=== PATIENT | male | born 1975 | race Hispanic/Latino ===

== ENCOUNTER 2023-08-11 18:22 | Emergency (ER) | payer BC, OTHER ==
[~2023-08-11] VITALS: Ht 167.6 cm; Wt 117.9 kg
[~2023-08-11 18:22] MED LIST: LEVO500T2 PO; METR500T PO
[2023-08-11 18:26] VITALS: BP 153/95; PULSE 111; RESP 18; O2SAT 98
[2023-08-11] MEDS ORDERED: AMOX1TAB16 PO (19:42)
[2023-08-11] MEDS: TETANUS/DIPHTHERIA TOXOID [ADULT] 0.5 ML VIAL IM ONE (19:49)
== END 2023-08-11 20:00 | disposition home or self-care (01) ==
LOC: EDH 18:22
DX: S61.431A Puncture wound without foreign body of right hand, initial encounter (principal); S30.811A Abrasion of abdominal wall, initial encounter; I10 Essential (primary) hypertension; E11.9 Type 2 diabetes mellitus without complications; Z79.899 Other long term (current) drug therapy; W54.0XXA Bitten by dog, initial encounter; Y93.89 Activity, other specified; Y92.89 Other specified places as the place of occurrence of the external cause; Y99.8 Other external cause status
CPT/HCPCS: 90471; 90714

== ENCOUNTER 2023-11-05 15:48 | Emergency (ER) | payer BC, OTHER ==
[~2023-11-05] VITALS: Ht 165.1 cm; Wt 108.9 kg
[~2023-11-05 15:48] MED LIST changes: +AMOX1TAB16 PO
[2023-11-05] MEDS: ONDANSETRON 4MG INJ IVP ONE (16:13)
[2023-11-05] MEDS: acetaZOLAMIDE 500MG VIAL IV SCH (16:14)
[2023-11-05] MEDS: MORPHINE 2 MG SYG IVP ONE (16:14)
[2023-11-05 16:25] LABS: BASOPHILS # (AUTO) 0.09 K/uL (0.00-0.20); BASOPHILS % (AUTO) 0.9 % (0.0-5.0); EOSINOPHILS # (AUTO) 0.07 K/uL (0.00-0.70); EOSINOPHILS % (AUTO) 0.7 % (0.0-8.0); HEMATOCRIT 52.1 % (42-54); IMMATURE GRANULOCYTE ABSOLUTE 0.12 K/uL (0-1); LYMPHOCYTES # (AUTO) 3.3 K/uL (1.0-4.8); LYMPHOCYTES % (AUTO) 32.2 % (21.0-51.0); MEAN CORPUSCULAR HEMOGLOBIN 27.2 pg (27.0-33.0); MEAN CORPUSCULAR VOLUME 80.2 fL (79-99); MONOCYTES # (AUTO) 0.7 K/uL (0.1-1.0); MONOCYTES % (AUTO) 7.3 % (3.0-13.0); NEUTROPHILS # (AUTO) 5.9 K/uL (1.8-7.7); NEUTROPHILS % (AUTO) 57.7 % (40.0-77.0); PLATELET COUNT (AUTO) 275 K/uL (130-400); RED CELL DISTRIBUTION WIDTH 13.9 % (11.0-15.5); WHITE BLOOD COUNT (AUTO) 10.1 K/uL (4.8-10.8)
[2023-11-05 16:28] LABS: POTASSIUM 4.1 mmol/L (3.5-5.1)
[2023-11-05 16:31] LABS: INR 1.02 (0.85-1.15)
[2023-11-05] MEDS: TIMOLOL MALEATE 0.25% 5 ML BOTTLE OD SCH (16:34)
[2023-11-05 17:57] VITALS: BP 147/81; PULSE 87; RESP 20; O2SAT 100
[2023-11-05] MEDS: KETOROLAC 30MG VIAL (30MG/ML) IVP ONE (18:56)
[2023-11-05] MEDS ORDERED: TIMO1DRO8 OP (20:30)
== END 2023-11-05 20:48 | disposition home or self-care (01) ==
LOC: EDH 15:48
DX: H53.143 Visual discomfort, bilateral (principal); H57.13 Ocular pain, bilateral; E11.9 Type 2 diabetes mellitus without complications; I10 Essential (primary) hypertension; Z79.899 Other long term (current) drug therapy
CPT/HCPCS: 99284; 96374; 96375; 70450; 82550; 84484; 80048; 85025; 85610; 85730; 36415; 93005; J1120; J2270; J2405; J1885

== ENCOUNTER 2024-03-25 15:40 | Emergency (ER) | payer BC, OTHER ==
[~2024-03-25] VITALS: Ht 167.6 cm; Wt 104.3 kg
[~2024-03-25 15:40] MED LIST changes: +TIMO1DRO8 OP
[2024-03-25] MEDS: dexaMETHasone SOD PHOSPHATE 4 MG/ML 1ML VIAL IM STA (17:42)
[2024-03-25] MEDS: ketOROlac 15MG/ML VIAL (15MG/ML) IM STA (17:42)
--- NOTE | 2024-03-25 17:50 | ERN ---
ED Note History of Present Illness Stated Complaint: LEFT LEG PAIN, R/T GOUT Chief Complaint: Lower Extremity Pain/Injury Time Seen by MD: 15:45 Time Seen by Midlevel: 15:48 Dictation: 48-year-old male with history of gout presents to the ED for evaluation of left leg pain onset 4 days ago. Patient reports pain radiates from his knee down to his foot, but denies any recent trauma, fall or any other associated symptoms at this time. Allergies: Coded Allergies: No Known Allergies (Unverified Allergy, Unknown, 10/23/13) Home Meds Active Scripts Sulfamethoxazole/Trimethoprim (Bactrim Ds Tablet) 800 Mg-160 Mg Tablet, 1 TAB PO BID for 7 Days, #14 TAB 0 Refills Prov:JAMEY HENRIQUEZ NP 03/25/24 Timolol Maleate/Pf (Timolol Maleate 0.25% Eye Drop) 0.25 % Droperette, 1 EACH OP QID, #60 DROP Prov:ERI WOO MD 11/05/23 Amoxicillin/Potassium Clav (Amox Tr-K Clv 875-125 mg Tab) 875 Mg-125 Mg Tablet, 1 EACH PO BID for 7 Days, #14 TAB Prov:HERBER LOTT 08/11/23 Levofloxacin (Levaquin) 500 Mg Tablet, 500 MG PO DAILY, #7 TAB Prov:DEZ NICOLE MD 09/03/14 Metronidazole (Flagyl) 500 Mg Tablet, 500 MG PO TID, #21 TAB Prov:DEZ NICOLE MD 09/03/14 Past Medical History Past Medical History: Diabetes-Type II, Hypertension Additional Past Medical Hx: GOUT Surgical History: None Review of System Dictation Constitutional: Negative for fever,chills, and weight loss Eyes: Negative for injury, pain,redness, and discharge ENT: Negative for injury,pain or swelling Cardiovascular: Negative for chest pain, palpitations, and edema Respiratory: Negative for shortness of breath, cough, and wheezing, Abdomen/GI: Negative for abdominal pain, nausea, vomiting, diarrhea, and constipation Back: Negative for injury and pain : Negative for injury, bleeding and discharge MS/Extremity: Positive for left leg pain, knee pain, foot pain Negative for injury and deformity Skin: Negative for rash, and discoloration Neuro: Negative for headache, weakness, numbness, tingling, and seizure Psych: Negative for suicide ideation, homicidal ideation, and hallucinations Review of Systems: was completed Initial Vital Sign VS Vital Signs Date Time Temp Pulse Resp B/P (MAP) Pulse Ox O2 Delivery O2 Flow Rate FiO2 03/25/24 15:42 99.1 131 16 151/109 97 Room Air 0 03/25/24 18:25 21 Physical Exam Dictation General: awake, alert, NAD Head/Face: Normocephalic, atraumatic Eyes: PERRL, EOMI, vision at baseline ENT: oral cavity clear, TMs clear, no signs of infection Neck: Trachea midline, supple, no nuchal rigidity Cardiovascular: RRR, normal S1/S2, No MRGs, no JVD Respiratory: CTAB, no respiratory distress, No rales or wheezes Abdomen: Soft, non-tender, non-distended, normal bowel sounds, no guarding or rebound. Skin: Warm, dry, normal turgor, no rash there is no redness, streaking, or any evidence of cellulitis or infections of the left foot MS/Extremity: Pulses equal, no cyanosis, neurovascular intact, FROM Neuro: COAx4, GCS 15, strength 5/5, CN 2-12 intact, normal cerebellar exam, normal gait, Psych: Normal behavior, mood, and affect normal Results (Laboratory/Radiology) Laboratory/Radiology Laboratory Tests Test 03/25/24 17:46 03/25/24 18:25 03/25/24 20:30 Urine Color YELLOW (YELLOW) Urine Appearance CLOUDY (CLEAR) H Urine pH 5.5 (5.0-8.0) Urine Specific [place] 1.031 (1.001-1.031) Urine Protein 20 mg/dL (NEGATIVE) H Urine Glucose (UA) >=1000 mg/dL (NEGATIVE) H Urine Ketones 40 mg/dL (NEGATIVE) H Urine Occult Blood SMALL (NEGATIVE) H Urine Nitrate NEGATIVE (NEGATIVE) Urine Bilirubin NEGATIVE mg/dL (NEGATIVE) Urine Urobilinogen 0.2 mg/dL (0.2-1.0) Urine Leukocyte Esterase 500 Shell/uL (NEGATIVE) H Urine RBC 51-100 /HPF (0-1) H Urine WBC 26-50 /HPF (0-1) H Urine Squamous Epithelial Cells FEW /HPF (0-2) Urine Bacteria FEW /HPF (None Seen) Urine Yeast FEW /HPF (None Seen) White Blood Count 14.7 K/uL (4.8-10.8) H Red Blood Count 6.43 MIL/uL (4.50-6.20) H Hemoglobin 17.6 g/dL (14.0-18.0) Hematocrit 52.7 % (42-54) Mean Corpuscular Volume 82.0 fL (79-99) Mean Corpuscular Hemoglobin 27.4 pg (27.0-33.0) Mean Corpuscular Hemoglobin Concent 33.4 g/dL (32.0-36.0) Red Cell Distribution Width 13.2 % (11.0-15.5) Platelet Count 276 K/uL (130-400) Mean Platelet Volume 9.0 fL (7.5-10.5) Immature Granulocyte % (Auto) 1.2 % (0-1) H Neutrophils (%) (Auto) 75.2 % (40.0-77.0) Lymphocytes (%) (Auto) 13.2 % (21.0-51.0) L Monocytes (%) (Auto) 9.8 % (3.0-13.0) Eosinophils (%) (Auto) 0.1 % (0.0-8.0) Basophils (%) (Auto) 0.5 % (0.0-5.0) Neutrophils # (Auto) 11.1 K/uL (1.8-7.7) H Lymphocytes # (Auto) 1.9 K/uL (1.0-4.8) Monocytes # (Auto) 1.4 K/uL (0.1-1.0) H Eosinophils # (Auto) 0.01 K/uL (0.00-0.70) Basophils # (Auto) 0.08 K/uL (0.00-0.20) Absolute Immature Granulocyte (auto 0.17 K/uL (0-1) Nucleated Red Blood Cells 0.0 % (0.0-0.19) Sodium Level 136 mmol/L (136-145) Potassium Level 4.1 mmol/L (3.5-5.1) Chloride Level 97 mmol/L (101-111) L Carbon Dioxide Level 26 mmol/L (21-32) Blood Urea Nitrogen 9 mg/dL (7-18) Creatinine 1.2 mg/dL (0.5-1.3) Glomerular Filtration Rate Calc 76 mL/min (>90) Random Glucose 317 mg/dL (70-105) H Total Calcium 9.7 mg/dL (8.5-10.1) Whole Blood Glucose 314 MG/DL (70-110) H Labs Reviewed?: Yes ED Course ED Course Orders Procedure Category Date Status Time Dexamethasone 4mg/Ml PHA 03/25/24 Complete 1ml Vial (Dexametha 16:50 Ketorolac PHA 03/25/24 Complete Tromethamine 15mg/Ml 16:50 Urinalysis Profile LAB 03/25/24 Complete 17:36 Culture Urine MUNA 03/25/24 Complete 18:08 Cbc With Differential LAB 03/25/24 Complete 18:15 Basic Metabolic Panel LAB 03/25/24 Complete 18:15 0.9%Nacl 1000ml (Ns PHA 03/25/24 Complete 1000ml) 18:15 Morphine 2mg Syg PHA 03/25/24 Complete (Morphine 2mg Syg) 18:30 Ceftriaxone 1g Vial PHA 03/25/24 Complete (Rocephine 1g Inj) 19:31 0.9%Nacl 1000ml (Ns PHA 03/25/24 Complete 1000ml) 19:31 Bedside Glucose CPOE 03/25/24 Transmitted Fingerstick 20:26 Morphine 2mg Syg PHA 03/25/24 Complete (Morphine 2mg Syg) 20:32 Ondansetron 4mg Inj PHA 03/25/24 Complete (Zofran 4mg Inj) 20:32 Insulin Regular, PHA 03/25/24 Complete Human 3ml (Humulin R 20:32 12 Lead Ekg Tracing- EKG 03/25/24 Complete Technical 15:20 Current Medications Medications (Trade) Dose Ordered Sig/Iraj Route PRN Reason Start Time Stop Time Status Last Admin Dose Admin Ceftriaxone Sodium (ROCEphine 1G INJ) 1 gm ONCE STAT IVPB 03/25/24 19:31 03/25/24 19:33 DC 03/25/24 19:48 Dexamethasone Sodium Phosphate (dexaMETHasone 4MG/ML 1ML VIAL) 6 mg ONCE STAT IM 03/25/24 16:50 03/25/24 16:51 DC 03/25/24 17:42 Insulin Human Regular (humuLIN R 100 UNIT/ML 3ML) 8 unit ONCE STAT IV 03/25/24 20:32 03/25/24 20:34 DC 03/25/24 20:43 Ketorolac Tromethamine (toRADol) 15 mg ONCE STAT IM 03/25/24 16:50 03/25/24 16:51 DC 03/25/24 17:42 Morphine Sulfate (morPHINE 2MG SYG) 2 mg ONCE ONCE IVP 03/25/24 18:30 03/25/24 18:31 DC 03/25/24 18:30 Morphine Sulfate (morPHINE 2MG SYG) 2 mg ONCE STAT IVP 03/25/24 20:32 03/25/24 20:34 DC 03/25/24 20:42 Ondansetron HCl (zoFRAN 4MG INJ) 4 mg ONCE STAT IVP 03/25/24 20:32 03/25/24 20:34 DC 03/25/24 20:43 Sodium Chloride 1,000 ml @ 100 mls/hr Q10H STAT IV 03/25/24 19:31 03/25/24 22:06 DC 03/25/24 19:49 Sodium Chloride 1,000 ml @ 1,000 mls/hr Q1H STAT IV 03/25/24 18:15 03/25/24 19:14 DC 03/25/24 18:30 Vital Signs Date Time Temp Pulse Resp B/P (MAP) Pulse Ox O2 Delivery O2 Flow Rate FiO2 03/25/24 22:02 98.4 98 16 132/88 98 Room Air* 0 21 03/25/24 19:11 98.4 110 16 139/89 97 Room Air* 0 21 03/25/24 18:25 98.4 130 16 137/98 98 Room Air* 0 21 03/25/24 15:42 99.1 131 16 151/109 97 Room Air 0 Medical Decision Making MDM MDM: 48-year-old male with history of gout presents to the ED for evaluation of left leg pain onset 4 days ago. Patient reports pain radiates from his knee down to his foot, but denies any recent trauma, fall or any other associated symptoms at this time.CBC shows leukocytosis of 14, no anemia, no thrombocytopenia. Chemistry shows high bowel clot anemia, hyperglycemia. UA shows evidence of urinary tract infection. 2 L of fluids given in the ER, insulin and Rocephin given in the ER along with pain control. Initially patient's heart rate was in the 130s without a fever and no complaints other than his left foot pain. After medications patient's heart rate now is in 107, patient states it is no more pain in his foot and he feels better. We will prescribe patient antibiotics to take home for his urinary tract infection and have him follow up outpatient. Patient educated to follow up with his PCP in 1- 2 days or to return to the ER if he starts to develop any nausea, vomiting, or fever. Patient verbalized understanding, answered all questions. Differential diagnosis: Gout, leg pain Previous outside records reviewed: Old ER visits. Need for hospitalization: Patient does not meet criteria for hospitalization. Need for emergency major/minor surgery: No Patient's prior external medical records from other ER visits were reviewed by me as indicated. Prior testing and results from previous visits were reviewed. Prior tests were taken into account with medical decision making and resource utilization, independent historian/historians were used to obtain complete medical history. I independently interpreted the test that were performed, results were reviewed by me and considered findings on radiology if ordered. Medical management and examination interpretation discussions were had by me with other qualified healthcare professionals as indicated for the patient's care. DX & DISP Disposition: Discharge Departure Impression: Primary Impression: Gout attack Additional Impression: Urinary tract infection Condition: Stable Scripts Sulfamethoxazole/Trimethoprim (Bactrim Ds Tablet) 800 Mg-160 Mg Tablet 1 TAB PO BID for 7 Days, #14 TAB 0 Refills Prov: JAMEY HENRIQUEZ NP 03/25/24 Additional Instructions: Take the antibiotic as prescribed, follow up with your primary doctor in 1-2 days. Return to the emergency room if you start to develop any fevers, nausea vomiting. Referrals: MAURILIO ZARATE MD (PCP) I have reviewed, & agreed with my scribe's, documentation. (Entered by Perla Steele, acting as a scribe for HERVE Henriquez) I have reviewed the case, and I agree with, Diagnosis and Plan I performed this substantive portion of this visit. I have reviewed and personally made and approve the management plan that is documented in the note by myself or the KOLE. I acknowledge full responsibility for the patient's management plan. I personally scribed for JAMEY HENRIQUEZ ASSISTANT BRAND MANAGER ([email or web address]) on 03/25/24 at 17:50. Elec tronically submitted by Perla Steele ([email or web address]). JAMEY HENRIQUEZ NP Mar 25, 2024 17:50 HERBERT MAYBERRY MD Mar 27, 2024 18:31
[2024-03-25 18:07] LABS: APPEARANCE,URINE CLOUDY (CLEAR); BILIRUBIN,URINE NEGATIVE (NEGATIVE); COLOR,URINE YELLOW (YELLOW); GLUCOSE, URINE (UA) >=1000 mg/dL (NEGATIVE); KETONES,URINE 40 mg/dL (NEGATIVE); LEUKOCYTE ESTERASE ,URINE 500 Leu/uL (NEGATIVE); NITRATE,URINE NEGATIVE (NEGATIVE); OCCULT BLOOD,URINE SMALL (NEGATIVE); PH,URINE 5.5 (5.0-8.0); PROTEIN,URINE 20 mg/dL (NEGATIVE); UROBILINOGEN,URINE 0.2 mg/dL (0.2-1.0)
[2024-03-25 18:08] LABS: ADD UA MICROSCOPIC YES
[2024-03-25 18:11] LABS: BACTERIA,URINE FEW /HPF (None Seen); MUCUS,URINE RARE LPF (None Seen); RBC,URINE 51-100 /HPF (0-1); SQUAMOUS EPITHELIAL CELL,UR FEW /HPF (0-2); WBC,URINE 26-50 /HPF (0-1); YEAST,URINE BUDDING FEW /HPF (None Seen)
[2024-03-25] MEDS: morPHINE 2 MG SYG IVP ONE (18:30)
[2024-03-25] MEDS: 0.9%NACL 1000ML 1,000 ML IV STA ×2 (18:30→19:49)
[2024-03-25 18:33] LABS: BASOPHILS # (AUTO) 0.08 K/uL (0.00-0.20); BASOPHILS % (AUTO) 0.5 % (0.0-5.0); EOSINOPHILS # (AUTO) 0.01 K/uL (0.00-0.70); EOSINOPHILS % (AUTO) 0.1 % (0.0-8.0); HEMATOCRIT 52.7 % (42-54); IMMATURE GRANULOCYTE ABSOLUTE 0.17 K/uL (0-1); LYMPHOCYTES # (AUTO) 1.9 K/uL (1.0-4.8); LYMPHOCYTES % (AUTO) 13.2 % (21.0-51.0); MEAN CORPUSCULAR HEMOGLOBIN 27.4 pg (27.0-33.0); MEAN CORPUSCULAR HGB CONC 33.4 g/dL (32.0-36.0); MONOCYTES # (AUTO) 1.4 K/uL (0.1-1.0); MONOCYTES % (AUTO) 9.8 % (3.0-13.0); NEUTROPHILS # (AUTO) 11.1 K/uL (1.8-7.7); NEUTROPHILS % (AUTO) 75.2 % (40.0-77.0); PLATELET COUNT (AUTO) 276 K/uL (130-400); RED BLOOD CELL COUNT(AUTO) 6.43 MIL/uL (4.50-6.20); RED CELL DISTRIBUTION WIDTH 13.2 % (11.0-15.5); WHITE BLOOD COUNT (AUTO) 14.7 K/uL (4.8-10.8)
[2024-03-25 18:41] LABS: CREATININE 1.2 mg/dL (0.5-1.3); POTASSIUM 4.1 mmol/L (3.5-5.1)
[2024-03-25] MEDS: cefTRIAXone 1G VIAL IVPB STA (19:48)
[2024-03-25] MEDS ORDERED: SULF1TAB42 PO (20:14)
--- NOTE | 2024-03-25 20:33 | NUR ---
PATIENT REQUESTED MORE PAIN MEDICATION, VOLUNTEER SERVICES SUPERVISOR NOTIFIED
[2024-03-25] MEDS: morPHINE 2 MG SYG IVP STA (20:42)
[2024-03-25] MEDS: ondanSETRON 4MG INJ IVP STA (20:43)
[2024-03-25] MEDS: INSULIN humuLIN R 100 UNIT/ML 3ML IV STA (20:43)
[2024-03-25 22:02] VITALS: BP 132/88; PULSE 98; RESP 16; TEMP 98.4; O2SAT 98
--- NOTE | 2024-03-26 06:20 | EKG ---
[facility] Test Date: 2024-03-25 Test Time: 18:16:29 Pat Name: CARMEN MENDOZA Department: ED Room: Gender: Male Product Safety Coordinator: [id number] : [id number] Requested By: RADHA PALUMBO Order Number: [id number] Reading MD: Measurements Intervals [place] Rate: 128 P: 136 NV: 157 QRS: 158 QRSD: 83 T: -5 QT: 302 QTc: 441 Interpretive Statements Sinus or ectopic atrial tachycardia Probable right ventricular hypertrophy No previous ECG available for comparison Please click the below link to view image of tracing.
== END 2024-03-25 22:05 | disposition home or self-care (01) ==
LOC: EDH 15:40
DX: M10.9 Gout, unspecified (principal); N39.0 Urinary tract infection, site not specified; E11.9 Type 2 diabetes mellitus without complications; I10 Essential (primary) hypertension
CPT/HCPCS: 99284; 96374; 96375; 96361; 80048; 85025; 87086; 82948; 81001; 36415; 96376; 93005; 96372 ×2; J1815; J1100; J2270 ×2; J7030 ×2; J0696; J2405; J1885

== ENCOUNTER 2024-05-05 14:32 | Emergency (ER) | payer BC ==
[~2024-05-05] VITALS: Ht 167.6 cm; Wt 104.3 kg
[~2024-05-05 14:32] MED LIST changes: +SULF1TAB42 PO
[2024-05-05 14:52] LABS: RAPID GROUP A STREP negative (NEGATIVE)
[2024-05-05 15:05] LABS: COVID19 (SARS ANTIGEN RAPID) PRESUMPTIVE NEGATIVE (NEGATIVE); INFLUENZA TYPE B Negative For Type B (NEGATIVE)
--- NOTE | 2024-05-05 15:12 | ERN ---
ED Note History of Present Illness Stated Complaint: FLU SYMPTOMS Chief Complaint: Flu Symptoms Time Seen by MD: 14:41 Dictation: Patient is a 48-year-old male coming in today with flu-like symptoms to include loss of taste, frontal headache with clear rhinitis and sore throat with dry cough with the last 2-3 days. Also states he is having body aches. Allergies: Coded Allergies: No Known Allergies (Unverified Allergy, Unknown, 10/23/13) Home Meds Active Scripts Sulfamethoxazole/Trimethoprim (Bactrim Ds Tablet) 800 Mg-160 Mg Tablet, 1 TAB PO BID for 7 Days, #14 TAB 0 Refills Prov:JAMEY ROB RUSSIAN HISTORY PROFESSOR 03/25/24 Timolol Maleate/Pf (Timolol Maleate 0.25% Eye Drop) 0.25 % Droperette, 1 EACH OP QID, #60 DROP Prov:ERI WOO MD 11/05/23 Amoxicillin/Potassium Clav (Amox Tr-K Clv 875-125 mg Tab) 875 Mg-125 Mg Tablet, 1 EACH PO BID for 7 Days, #14 TAB Prov:HERBER LOTT 08/11/23 Levofloxacin (Levaquin) 500 Mg Tablet, 500 MG PO DAILY, #7 TAB Prov:DEZ NICOLE MD 09/03/14 Metronidazole (Flagyl) 500 Mg Tablet, 500 MG PO TID, #21 TAB Prov:DEZ NICOLE MD 09/03/14 Past Medical History Past Medical History: Diabetes-Type II, Hypertension Additional Past Medical Hx: GOUT Surgical History: None RN Note Reviewed/Agreed w/PFSH: Yes Review of System Dictation CONSTITUTIONAL: Negative except for HPI fever chills HEAD/FACE: Negative except for HPI EENT: Negative except for HPI clear rhinitis with sore throat RESPIRATORY: Negative except for HPI dry cough GASTROINTESTINAL/ABDOMINAL: Negative except for HPI GENITOURINARY: Negative except for HPI MUSCULOSKELETAL: Negative except for HPI INTEGUMENTARY: Negative except for HPI NEUROLOGICAL/PSYCH: Negative except for HPI HEMATOLOGIC/LYMPHATIC: Negative except for HPI All Systems Negative, Except as noted above. 13 point review of systems assessed and all negative except for above. Initial Vital Sign VS Vital Signs Date Time Temp Pulse Resp B/P (MAP) Pulse Ox O2 Delivery O2 Flow Rate FiO2 05/05/24 14:36 98.1 110 18 125/88 98 Room Air Physical Exam Dictation Vital Signs reviewed General Appearance: Alert, oriented x 3, no acute distress, well developed, nourished. Obese Head and Face: non-traumatic. Eyes: PERRL, pink conjunctivas, eyelid no trauma, anterior chamber with arcus senilis. Ears: Pinnas intact and no signs of trauma or erythema ear canals clear and no discharge TM no erythema Nose: Clear discharge, no bleeding. Oropharynx: Mouth normal, tongue pink, pharynx clear, moderate pharyngeal erythema, tonsils no exudates, no abscesses noted, mucous membrane moist uvula midline, voice is clear Neck: Supple, non-tender, no thyromegaly, no masses, no JVD, no bruits Breast:Deferred Chest:No tenderness, no crepitus, no paradoxical movement, no retractions Lungs:Clear, well-ventilated, symmetric, no rales, no wheezing, no rhonchi, no stridor, good breath sounds bilaterally Heart: Regular rate, regular rhythm, no murmur, no gallops Vascular: no peripheral edema, Abdomen: Soft, positive bowel sounds, nondistended, no guarding, nontender, no rebound, no masses no hepatomegaly, no splenomegaly, no Ellis's sign, no hernias. Rectal: Deferred Genital: Deferred Neurological: Normal speech, motor function intact, sensory function intact Musculoskeletal: Neck nontender, full range of motion, back nontender, full range of motion, Extremities: nontender, full range of motion Skin: Color pink, dry, no turgor, no rash, no lacerations, no abrasions, no contusions. Lymphatic: Deferred Results (Laboratory/Radiology) Laboratory/Radiology Laboratory Tests Test 05/05/24 14:40 Influenza Type A Antigen Positive For Type A Influenza Type B Antigen Negative For Type B SARS-CoV-2 Antigen (Rapid) PRESUMPTIVE NEGATIVE Group A Streptococcus Rapid negative (NEGATIVE) Labs Reviewed?: Yes ED Course ED Course Orders Procedure Category Date Status Time Covid19 (Sars Antigen LAB 05/05/24 Complete Rapid) 14:38 Influenza Type A & B, LAB 05/05/24 Complete Rapid 14:38 Rapid (Group A Strep) LAB 05/05/24 Complete 14:38 Ibuprofen 800 Mg Tab PHA 05/05/24 Complete (Motrin) 15:30 Current Medications Medications (Trade) Dose Ordered Sig/Iraj Route PRN Reason Start Time Stop Time Status Last Admin Dose Admin Ibuprofen (moTRIN) 800 mg ONCE ONCE PO 05/05/24 15:30 05/05/24 15:31 DC Vital Signs Date Time Temp Pulse Resp B/P (MAP) Pulse Ox O2 Delivery O2 Flow Rate FiO2 05/05/24 14:36 98.1 110 18 125/88 98 Room Air 1650/patient has positive for influenza A. He will be discharged home with [id number] mg b.i.d. for five days and ibuprofen. Patient told to see his [facility] doctor for follow up in the next 2-3 days no work until cleared by his doctor. Medical Decision Making MDM Medical discharge making based on swabs for flu COVID and strep. Patient influenza A positive Discharged home with [id number] mg p.o. b.i.d. five days Ibuprofen for fever pain Increase fluids and see his primary care doctor for returned back to work clearance. DX & DISP Disposition: Discharge Departure Impression: Primary Impression: Influenza A Additional Impression: Fever Condition: Stable Scripts Ibuprofen (Ibuprofen 800 mg Tab) 800 Mg Tab 800 MG PO Q8H PRN for fever or pain, #30 TAB 0 Refills Prov: NISHA FLORES RUSSIAN HISTORY PROFESSOR 05/05/24 Oseltamivir Phosphate (Tamiflu) 75 Mg Cap 75 MG PO BID for 5 Days, #10 CAP Prov: NISHA FLORES RUSSIAN HISTORY PROFESSOR 05/05/24 Additional Instructions: Follow-up with primary care provider in 1 to 2 days. Take medications as directed here in the emergency room. Okay to continue home medications unless otherwise discussed during your visit in the emergency room today. Return to your nearest emergency room if symptoms worsen or if there is no improvement. Call 911 if you need immediate assistance. Take Tylenol or Motrin over-the- counter as needed and if no contraindications are present. Increase oral hydration. A wound culture or urine culture was ordered here in the emergency room department please follow-up with primary care provider and advise them to get repeat ports from our facility. If you had any Clint wrap/splints that were applied here, please do not remove them until you see your primary care or specialty. Increase your fluid intake. Take Tamiflu as directed until gone. No work until cleared back by your primary care doctor. Referrals: MAURILIO ZARATE MD (PCP) Time of Disposition: 16:54 I have reviewed the case, and I agree with, Diagnosis and Plan NISHA FLORES NP May 05, 2024 15:12
[2024-05-05 15:23] LABS: INFLUENZA TYPE A Positive For Type A (NEGATIVE)
--- NOTE | 2024-05-05 16:40 | NUR ---
PT MOVED INTO INTERNAL WAITING AREA FOR MEDICATION ADM
[2024-05-05] MEDS: ibuPROFEN 800 MG TAB PO ONE (16:55)
[2024-05-05] MEDS ORDERED: IBUP-2077 PO (16:56)
[2024-05-05] MEDS ORDERED: OSEL75 PO (16:56)
--- NOTE | 2024-05-05 17:18 | NUR ---
MOVED PT INTO INTERNAL WAITING FOR DC INSTRUCTIONS.
[2024-05-05 17:22] VITALS: BP 127/77; PULSE 90; RESP 20; TEMP 98.8; O2SAT 98
== END 2024-05-05 17:28 | disposition home or self-care (01) ==
LOC: EDH 14:32
DX: J10.1 Influenza due to other identified influenza virus with other respiratory manifestations (principal); R50.9 Fever, unspecified; E11.9 Type 2 diabetes mellitus without complications; I10 Essential (primary) hypertension; Z20.822 Contact with and (suspected) exposure to COVID-19
CPT/HCPCS: 87426; 87804; 87880; 99283

== ENCOUNTER 2024-10-21 11:25 | Emergency (ER) | payer BC ==
[~2024-10-21] VITALS: Ht 167.6 cm; Wt 96.6 kg
[~2024-10-21 11:25] MED LIST changes: +IBUP-2077 PO; +OSEL75 PO
[2024-10-21 13:01] LABS: IMMATURE GRANULOCYTE ABSOLUTE 0.10 K/uL (0-1); NUCLEATED RED BLOOD CELLS 0.0 % (0.0-0.19); PLATELET COUNT (AUTO) 274 K/uL (130-400); RED BLOOD CELL COUNT(AUTO) 6.21 MIL/uL (4.50-6.20); RED CELL DISTRIBUTION WIDTH 14.5 % (11.0-15.5); WHITE BLOOD COUNT (AUTO) 9.3 K/uL (4.8-10.8)
[2024-10-21 13:07] LABS: CREATININE 0.9 mg/dL (0.5-1.3); GLOMERULAR FILTR. RATE CALC 106.0 mL/min (>90); GLUCOSE,RANDOM 233.0 mg/dL (70-105); SODIUM SERUM 135.0 mmol/L (136-145); UREA NITROGEN, BLOOD 9.0 mg/dL (7-18)
--- NOTE | 2024-10-21 14:21 | HMCIMG ---
EXAM: CT Head Without IV contrast. CLINICAL HISTORY: headaches TECHNIQUE: Axial computed tomography images of the head/brain without intravenous contrast. COMPARISON: November 05, 2023 FINDINGS: BRAIN: No evidence of acute hemorrhage. No mass lesion. No CT evidence for acute territorial infarct. No midline shift or extra-axial collections. VENTRICLES: No hydrocephalus. ORBITS: The orbits are unremarkable. SINUSES AND MASTOIDS: The paranasal sinuses and mastoid air cells are clear. BONES: No fracture. SOFT TISSUES: Unremarkable. IMPRESSION: No acute intracranial abnormality. /[facility]
[2024-10-21 14:31] VITALS: BP 128/84; PULSE 82; RESP 16; TEMP 98.1; O2SAT 97
[2024-10-21] MEDS ORDERED: FIORIT PO (14:57)
[2024-10-21] MEDS ORDERED: PROC5TAB54 PO (14:59)
--- NOTE | 2024-10-21 14:59 | ERN ---
ED Note History of Present Illness Stated Complaint: MIGRAINE X 3 MONTHS Chief Complaint: Headache Time Seen by MD: 12:19 Dictation: 49 y/o M with acute on chronic headaches , worse over the past few days. Pt reports pain is generalized, no fevers or trauma, dull pain Allergies: Coded Allergies: No Known Allergies (Unverified Allergy, Unknown, 10/23/13) Home Meds Active Scripts Prochlorperazine Maleate (Compazine) 5 Mg Tab, 1 TAB PO BID for 5 Days, #10 TAB 0 Refills Prov:HERBERT MAYBERRY MD 10/21/24 Ibuprofen (Ibuprofen 800 mg Tab) 800 Mg Tab, 800 MG PO Q8H PRN for fever or pain, #30 TAB 0 Refills Prov:NISHA FLORES INCOMING INSPECTOR 05/05/24 Oseltamivir Phosphate (Tamiflu) 75 Mg Cap, 75 MG PO BID for 5 Days, #10 CAP Prov:NISHA FLORES INCOMING INSPECTOR 05/05/24 Sulfamethoxazole/Trimethoprim (Bactrim Ds Tablet) 800 Mg-160 Mg Tablet, 1 TAB PO BID for 7 Days, #14 TAB 0 Refills Prov:JAMEY ROB NP 03/25/24 Timolol Maleate/Pf (Timolol Maleate 0.25% Eye Drop) 0.25 % Droperette, 1 EACH OP QID, #60 DROP Prov:ERI WOO MD 11/05/23 Amoxicillin/Potassium Clav (Amox Tr-K Clv 875-125 mg Tab) 875 Mg-125 Mg Tablet, 1 EACH PO BID for 7 Days, #14 TAB Prov:HERBER LOTT 08/11/23 Levofloxacin (Levaquin) 500 Mg Tablet, 500 MG PO DAILY, #7 TAB Prov:DEZ NICOLE MD 09/03/14 Metronidazole (Flagyl) 500 Mg Tablet, 500 MG PO TID, #21 TAB Prov:DEZ NICOLE MD 09/03/14 Past Medical History Past Medical History: Diabetes-Type II, Hypertension, Migraines Additional Past Medical Hx: GOUT Surgical History: None Review of System Dictation Constitutional: Negative for fever,chills, and weight loss Eyes: Negative for injury, pain,redness, and discharge ENT: Negative for injury,pain or swelling Cardiovascular: Negative for chest pain, palpitations, and edema Respiratory: Negative for shortness of breath, cough, and wheezing, Abdomen/GI: Negative for abdominal pain, nausea, vomiting, diarrhea, and constipation Back: Negative for injury and pain : Negative for injury, bleeding and discharge MS/Extremity: Negative for injury and deformity Skin: Negative for rash, and discoloration Neuro:per HPi Initial Vital Sign VS Vital Signs Date Time Temp Pulse Resp B/P (MAP) Pulse Ox O2 Delivery O2 Flow Rate FiO2 10/21/24 11:26 98.1 87 16 138/94 97 Room Air 0 10/21/24 11:29 21 Physical Exam Dictation General: awake, alert, NAD Head/Face: Normocephalic, atraumatic Eyes: PERRL, EOMI, vision at baseline ENT: oral cavity clear, TMs clear, no signs of infection Neck: Trachea midline, supple, no nuchal rigidity Cardiovascular: RRR, normal S1/S2, No MRGs, no JVD Respiratory: CTAB, no respiratory distress, No rales or wheezes Abdomen: Soft, non-tender, non-distended, normal bowel sounds, no guarding or rebound. Skin: Warm, dry, normal turgor, no rash MS/Extremity: Pulses equal, no cyanosis, neurovascular intact, FROM Neuro: COAx4, GCS 15, strength 5/5, CN 2-12 intact, normal cerebellar exam, normal gait, Psych: Normal behavior, mood, and affect normal Results (Laboratory/Radiology) Laboratory/Radiology Laboratory Tests Test 10/21/24 12:33 White Blood Count 9.3 K/uL (4.8-10.8) Red Blood Count 6.21 MIL/uL (4.50-6.20) H Hemoglobin 16.3 g/dL (14.0-18.0) Hematocrit 50.0 % (42-54) Mean Corpuscular Volume 80.5 fL (79-99) Mean Corpuscular Hemoglobin 26.2 pg (27.0-33.0) L Mean Corpuscular Hemoglobin Concent 32.6 g/dL (32.0-36.0) Red Cell Distribution Width 14.5 % (11.0-15.5) Platelet Count 274 K/uL (130-400) Mean Platelet Volume 9.0 fL (7.5-10.5) Immature Granulocyte % (Auto) 1.1 % (0-1) H Neutrophils (%) (Auto) 57.2 % (40.0-77.0) Lymphocytes (%) (Auto) 31.5 % (21.0-51.0) Monocytes (%) (Auto) 7.5 % (3.0-13.0) Eosinophils (%) (Auto) 1.8 % (0.0-8.0) Basophils (%) (Auto) 0.9 % (0.0-5.0) Neutrophils # (Auto) 5.3 K/uL (1.8-7.7) Lymphocytes # (Auto) 2.9 K/uL (1.0-4.8) Monocytes # (Auto) 0.7 K/uL (0.1-1.0) Eosinophils # (Auto) 0.17 K/uL (0.00-0.70) Basophils # (Auto) 0.08 K/uL (0.00-0.20) Absolute Immature Granulocyte (auto 0.10 K/uL (0-1) Nucleated Red Blood Cells 0.0 % (0.0-0.19) Sodium Level 135 mmol/L (136-145) L Potassium Level 4.2 mmol/L (3.5-5.1) Chloride Level 98 mmol/L (101-111) L Carbon Dioxide Level 28 mmol/L (21-32) Blood Urea Nitrogen 9 mg/dL (7-18) Creatinine 0.9 mg/dL (0.5-1.3) Glomerular Filtration Rate Calc 106 mL/min (>90) Random Glucose 233 mg/dL (70-105) H Total Calcium 9.5 mg/dL (8.5-10.1) CT Scan Comment: negative ED Course ED Course Orders Procedure Category Date Status Time Cbc With Differential LAB 10/21/24 Complete 12:19 Basic Metabolic Panel LAB 10/21/24 Complete 12:19 Ct Head/Brain W/O CT 10/21/24 Resulted Contrast 12:19 Hydrocodone/Apap PHA 10/21/24 Complete 10/325 Tab ([place] 10) 15:00 Ketorolac PHA 10/21/24 Complete Tromethamine 15mg/Ml 15:00 Current Medications Medications (Trade) Dose Ordered Sig/Iraj Route PRN Reason Start Time Stop Time Status Last Admin Dose Admin Acetaminophen/ Hydrocodone Bitart ([place]co 10) 1 tab ONCE ONCE PO 10/21/24 15:00 10/21/24 15:01 DC 10/21/24 15:04 Ketorolac Tromethamine (toRADol) 15 mg ONCE ONCE IM 10/21/24 15:00 10/21/24 15:01 DC 10/21/24 15:03 Vital Signs Date Time Temp Pulse Resp B/P (MAP) Pulse Ox O2 Delivery O2 Flow Rate FiO2 10/21/24 14:31 98.1 82 16 128/84 97 Room Air* 0 21 10/21/24 11:29 98.1 87 16 138/94 97 Room Air* 0 21 10/21/24 11:26 98.1 87 16 138/94 97 Room Air 0 Medical Decision Making MDM MDM: Differential diagnosis: Rationale: Tests considered and ordered secondary to shared decision making include: Previous outside records reviewed: Old ER visits. Risk of complication and/or morbidity or mortality of patient management: None Medications-Per medication reconciliation Need for hospitalization: Patient does not meet criteria for hospitalization. Need for emergency major/minor surgery: No There are no social concerns with this patient. Prescription drug management Prescriptions will include symptomatic care Patient's prior external medical records from other ER visits were reviewed by me as indicated. Prior testing and results from previous visits were reviewed. Prior tests were taken into account with medical decision making and resource utilization, independent historian/historians were used to obtain complete medical history. I independently interpreted the test that were performed, results were reviewed by me and considered findings on radiology if ordered. Medical management and examination interpretation discussions were had by me with other qualified healthcare professionals as indicated for the patient's care. 49 y/o M with headache, stable exam and CT head negative. DX & DISP Disposition: Discharge Departure Impression: Primary Impression: Acute headache Condition: Stable Scripts Prochlorperazine Maleate (Compazine) 5 Mg Tab 1 TAB PO BID for 5 Days, #10 TAB 0 Refills Prov: HERBERT MAYBERRY MD 10/21/24 Referrals: CLEVE MARTINEZ MD (PCP) HERBERT MAYBERRY MD Oct 21, 2024 14:59
== END 2024-10-21 15:07 | disposition home or self-care (01) ==
LOC: EDH 11:25
DX: G43.909 Migraine, unspecified, not intractable, without status migrainosus (principal); E11.9 Type 2 diabetes mellitus without complications; I10 Essential (primary) hypertension; Z79.899 Other long term (current) drug therapy
CPT/HCPCS: 99284; 70450; 80048; 85025; 36415; 96372; J1885